=== PATIENT | female | born 1990 | race Caucasian/White ===

== ENCOUNTER 2016-09-21 10:01 | Emergency (ER) | payer OTHER ==
[~2016-09-21] VITALS: Ht 170.2 cm; Wt 98.1 kg
[~2016-09-21 10:01] MED LIST: CHROMAGEN,1 CAPSULE PO; MOTRIN800 MG PO; NOHOMEMEDS
[2016-09-21 10:48] LABS: ADD MIUA? YES; BILIRUBIN NEGATIVE; BLOOD LARGE; COLOR YELLOW ((YELLOW)); GLUCOSE (STRIP) NEGATIVE; KETONES NEGATIVE; LEUKOCYTES LARGE; NITRITE NEGATIVE; PROTEIN (STRIP) 100; SPECIFIC GRAVITY 1.025 (1.000-1.030); UROBILINOGEN 0.2 MG/DL (0.2-1.0)
[2016-09-21 11:02] LABS: BACTERIA 2+ /HPF; EPITHELIAL CELLS 1+ /HPF; MUCUS NONE SEEN /LPF; UCUL ADDED? YES; WHITE BLOOD CELLS TNTC /HPF (0-5)
[2016-09-21] MEDS ORDERED: BACTRIM,SEPT1 TABLET PO (12:12)
[2016-09-21] MEDS ORDERED: PYRIDIUM100 MG PO (12:12)
[2016-09-21 12:57] VITALS: BP 117/78
== END 2016-09-21 12:58 | disposition home or self-care (01) ==
LOC: EME 10:01
DX: N39.0 Urinary tract infection, site not specified (principal); Z87.440 Personal history of urinary (tract) infections
CPT/HCPCS: 81003; 87077; 87086; 87186; 99281; 99284

== ENCOUNTER 2016-12-15 00:34 | Emergency (ER) | payer OTHER ==
[~2016-12-15] VITALS: Ht 170.2 cm; Wt 77.9 kg
[~2016-12-15 00:34] MED LIST changes: +BACTRIM,SEPT1 TABLET PO; +PYRIDIUM100 MG PO
[2016-12-15 00:52] LABS: ADD MIUA? YES; BILIRUBIN NEGATIVE; BLOOD LARGE; COLOR YELLOW ((YELLOW)); GLUCOSE (STRIP) NEGATIVE; KETONES NEGATIVE; LEUKOCYTES LARGE; NITRITE POSITIVE; PROTEIN (STRIP) 100; SPECIFIC GRAVITY 1.016 (1.000-1.030); UROBILINOGEN 0.2 MG/DL (0.2-1.0)
[2016-12-15 01:03] LABS: HEMATOCRIT 36.6 % (36.0-46.0); MCH 27.6 PG (29.0-34.0); MCHC 32.2 G/DL (30.0-36.0); MCV 85.7 FL (83-99); MEAN PLAT.VOLUME 10.8 uM^3 (9.5-12.4); PLATELET COUNT 215 K/uL (156-360); RBC DIS.WIDTH-CV 13.5 % (11.8-14.6); RBC DIS.WIDTH-SD 42.2 % (39-53); RED BLOOD COUNT 4.27 M/uL (3.80-5.20); WHITE BLOOD COUNT 13.6 K/uL (4.1-10.2)
[2016-12-15 01:17] LABS: CHLORIDE 106 mEq/L (99-109); POTASSIUM 3.8 mEq/L (3.7-5.4); SODIUM 140 mEq/L (136-147)
[2016-12-15 01:18] LABS: BACTERIA 3+ /HPF; EPITHELIAL CELLS 1+ /HPF; MUCUS 1+ /LPF; RED BLOOD CELLS TNTC /HPF (0-5); UCUL ADDED? YES; WHITE BLOOD CELLS TNTC /HPF (0-5)
[2016-12-15 01:19] LABS: GLUCOSE 95 mg/dL (70-99)
[2016-12-15 01:20] LABS: ANION GAP 9 MEQ/L (2-14)
[2016-12-15 01:21] LABS: TOTAL BILIRUBIN 0.6 mg/dL (0.0-1.0)
[2016-12-15 01:23] LABS: ALKALINE PHOSPHATASE 51 IU/L (3-129); GFR ESTIMATE (CALCULATED) > 59 mL/min/
[2016-12-15 01:24] LABS: UREA NITROGEN (BUN) 12 mg/dL (9-23)
[2016-12-15 01:33] LABS: QUANTITATIVE HCG < 4.0 MIU/ML
[2016-12-15] MEDS ORDERED: KEFLEX500 MG PO (03:06)
[2016-12-15 03:27] VITALS: BP 95/70
== END 2016-12-15 03:29 | disposition home or self-care (01) ==
LOC: EME 00:34
DX: N39.0 Urinary tract infection, site not specified (principal); R31.9 Hematuria, unspecified; D72.829 Elevated white blood cell count, unspecified; R10.32 Left lower quadrant pain; Z87.440 Personal history of urinary (tract) infections
CPT/HCPCS: 80053; 81003; 84702; 85027; 87077; 87086; 87186; 99281; 99284; J0696

== ENCOUNTER 2017-10-26 10:43 | Emergency (ER) | payer OTHER ==
[~2017-10-26] VITALS: Ht 170.2 cm; Wt 73.8 kg
[~2017-10-26 10:43] MED LIST changes: +KEFLEX500 MG PO
[2017-10-26 13:24] LABS: HEMATOCRIT 38.1 % (36.0-46.0); HEMOGLOBIN 12.9 G/DL (11.9-15.5); MCH 29.9 PG (29.0-34.0); MCHC 33.9 G/DL (30.0-36.0); MCV 88.2 FL (83-99); PLATELET COUNT 221 K/uL (156-360); RBC DIS.WIDTH-CV 12.5 % (11.8-14.6); RBC DIS.WIDTH-SD 40.7 % (39-53); RED BLOOD COUNT 4.32 M/uL (3.80-5.20); WHITE BLOOD COUNT 8.5 K/uL (4.1-10.2)
[2017-10-26 13:29] LABS: APPEARANCE SL.HAZY ((CLEAR)); BILIRUBIN NEGATIVE; BLOOD MODERATE; COLOR YELLOW ((YELLOW)); GLUCOSE (STRIP) NEGATIVE; KETONES NEGATIVE; LEUKOCYTES NEGATIVE; NITRITE NEGATIVE; PROTEIN (STRIP) NEGATIVE; SPECIFIC GRAVITY 1.012 (1.000-1.030); UROBILINOGEN 0.2 MG/DL (0.2-1.0)
[2017-10-26 13:38] LABS: CHLORIDE 106 mEq/L (99-109); POTASSIUM 3.8 mEq/L (3.7-5.4); SODIUM 138 mEq/L (136-147)
[2017-10-26 13:39] LABS: BACTERIA RARE /HPF; CALCIUM OXALATE CRYSTALS 1+ /HPF; EPITHELIAL CELLS 2+ /HPF; MUCUS 4+ /LPF; RED BLOOD CELLS 0-5 /HPF (0-5); UCUL ADDED? NO; WHITE BLOOD CELLS 0-5 /HPF (0-5)
[2017-10-26 13:39] LABS: GLUCOSE 95 mg/dL (70-99)
[2017-10-26 13:43] LABS: CREATININE 0.8 mg/dL (0.6-1.3); GFR ESTIMATE (CALCULATED) > 59 mL/min/
[2017-10-26 13:44] LABS: UREA NITROGEN (BUN) 14 mg/dL (9-23)
[2017-10-26 13:45] LABS: QUANTITATIVE HCG 1124.9 MIU/ML
[2017-10-26 14:14] VITALS: BP 134/86
== END 2017-10-26 14:16 | disposition home or self-care (01) ==
LOC: EME 10:43
PROVIDERS: Nurse Practitioner Family
DX: O20.0 Threatened abortion (principal); Z87.440 Personal history of urinary (tract) infections
CPT/HCPCS: 76801; 80048; 80053; 81003; 84702; 85027; 99281; 99284